=== PATIENT | male | born 1940 | race Hispanic/Latino ===

== ENCOUNTER 2020-03-18 10:13 | Inpatient (IN) | payer MEDICARE, OTHER ==
[~2020-03-18] VITALS: Ht 175.3 cm; Wt 79.4 kg
[2020-03-18] MEDS ORDERED: 0.9%NACL 1000ML 1,000 ML IV ONE (10:44)
[2020-03-18] MEDS ORDERED: ONDANSETRON 4MG INJ ONE (11:03)
[2020-03-18 11:09] LABS: BASOPHILS % (AUTO) 0.1 % (0.0-5.0); HEMATOCRIT 39.7 % (42-54); LYMPHOCYTES % (AUTO) 6.4 % (21.0-51.0); MEAN CORPUSCULAR HEMOGLOBIN 27.7 pg (27.0-33.0); MEAN CORPUSCULAR HGB CONC 33.8 g/dL (32.0-36.0); MEAN CORPUSCULAR VOLUME 82.2 fL (79-99); MONOCYTES % (AUTO) 8.2 % (3.0-13.0); NEUTROPHILS % (AUTO) 84.3 % (40.0-77.0); PLATELET COUNT (AUTO) 249 K/uL (130-400); RED BLOOD CELL COUNT(AUTO) 4.83 MIL/uL (4.50-6.20); WHITE BLOOD COUNT (AUTO) 11.4 K/uL (4.8-10.8)
[2020-03-18 11:49] LABS: ALBUMIN 2.6 g/dL (3.5-5.0); BILIRUBIN,TOTAL 0.6 mg/dL (0.2-1.0); CREATININE 2.7 mg/dL (0.5-1.5); MAGNESIUM 4.2 mg/dL (1.80-2.40); POTASSIUM 5.9 mmol/L (3.5-5.1); TOTAL PROTEIN, SERUM 6.6 g/dL (6.0-8.3)
[2020-03-18] MEDS ORDERED: INSULIN HUMULIN R 100 UNIT/ML 3ML ONE ×2 (12:30→21:36)
[2020-03-18 13:07] LABS: CRP QUANTITATIVE 19.3 mg/L (0.00-9.0); PHOSPHORUS 5.1 mg/dL (2.5-4.9)
[2020-03-18 13:18] LABS: BILIRUBIN,URINE Negative (NEGATIVE); COLOR,URINE Yellow (YELLOW); GLUCOSE, URINE (UA) >=1000 mg/dL (NEGATIVE); KETONES,URINE Negative (NEGATIVE); LEUKOCYTE ESTERASE ,URINE Negative (NEGATIVE); NITRATE,URINE Negative (NEGATIVE); OCCULT BLOOD,URINE Moderate (NEGATIVE); PROTEIN,URINE 300 mg/dL (NEGATIVE); UROBILINOGEN,URINE 0.2 mg/dL (0.2-1.0)
[2020-03-18 13:23] LABS: APPEARANCE,URINE CLEAR (CLEAR)
[2020-03-18 13:39] LABS: BACTERIA,URINE None Seen /HPF (None Seen); RBC,URINE 0-1 /HPF (0-1); WBC,URINE 0-1 /HPF (0-1)
[2020-03-18 15:19] LABS: CREATININE 2.7 mg/dL (0.5-1.5)
[2020-03-18] MEDS ORDERED: ACETAMINOPHEN 325 MG TAB PO PRN ×2 (16:45)
[2020-03-18] MEDS ORDERED: ONDANSETRON 4MG INJ IV PRN (16:45)
[2020-03-18] MEDS ORDERED: GUAIFENESIN-DM 200/20 MG 10 ML PO PRN (16:45)
[2020-03-18] MEDS ORDERED: ERGOCALCIFEROL (VITAMIN D2) 50,000 UNIT CAPSULE PO ONE (16:45)
[2020-03-18] MEDS ORDERED: KAYEXALATE 15GM/60ML PO SCH (17:00)
[2020-03-18] MEDS ORDERED: GLUCAGON 1MG KIT 1 MG ML IM PRN (17:00)
[2020-03-18] MEDS ORDERED: DEXTROSE 50%-WATER 50 ML DISP.SYRIN IV PRN (17:00)
[2020-03-18] MEDS ORDERED: 0.9%NACL 1000ML 1,000 ML IV SCH (20:45)
[2020-03-18] MEDS ORDERED: FAMOTIDINE 20MG VIAL IV SCH (21:00)
[2020-03-18] MEDS ORDERED: 1/2 NS 1000ML 1,000 ML IV SCH (21:00)
[2020-03-18] MEDS ORDERED: INSULIN HUMULIN R 100 UNIT/ML 3ML SQ SCH (21:00)
[2020-03-18] MEDS ORDERED: FAMOTIDINE 20MG VIAL IV ONE (21:08)
[2020-03-18] MEDS ORDERED: AZITHROMYCIN 500MG+NS 250ML 250 ML IV SCH (21:15)
[2020-03-18] MEDS ORDERED: KAYEXALATE 15GM/60ML ONE (21:18)
[2020-03-18] MEDS ORDERED: AZITHROMYCIN 500MG+NS 250ML 250 ML IV ONE (21:58)
[2020-03-18] MEDS ORDERED: DEXTROSE 5%-WATER 1,000 ML IV SCH (23:45)
[2020-03-19 07:11] LABS: MEAN CORPUSCULAR HEMOGLOBIN 27.5 pg (27.0-33.0); MEAN CORPUSCULAR HGB CONC 32.5 g/dL (32.0-36.0); MEAN CORPUSCULAR VOLUME 84.7 fL (79-99); RED BLOOD CELL COUNT(AUTO) 4.72 MIL/uL (4.50-6.20); RED CELL DISTRIBUTION WIDTH 14.5 % (11.0-15.5); WHITE BLOOD COUNT (AUTO) 13.4 K/uL (4.8-10.8)
[2020-03-19 07:24] LABS: HEMOGLOBIN A1C 9.5 % (4.0-6.0)
[2020-03-19] MEDS ORDERED: INSULIN R PO SS1/2 SQ SCH (07:30)
[2020-03-19] MEDS ORDERED: INSULIN HUMULIN R 100 UNIT/ML 3ML SQ SCH (08:00)
[2020-03-19] MEDS ORDERED: ASCORBIC ACID 500 MG TAB ONE (08:37)
[2020-03-19] MEDS ORDERED: ZINC SULFATE 220 CAPSULE ONE (08:38)
[2020-03-19 08:45] LABS: ALBUMIN 2.4 g/dL (3.5-5.0); BILIRUBIN,TOTAL 0.5 mg/dL (0.2-1.0); CREATININE 2.7 mg/dL (0.5-1.5); POTASSIUM 5.1 mmol/L (3.5-5.1); TOTAL PROTEIN, SERUM 6.3 g/dL (6.0-8.3)
[2020-03-19] MEDS ORDERED: HEPARIN 5,000 UNIT VIAL SQ SCH (09:00)
[2020-03-19] MEDS ORDERED: ZINC SULFATE 220 CAPSULE PO SCH (09:00)
[2020-03-19] MEDS ORDERED: ASCORBIC ACID 500 MG TAB PO SCH (09:00)
[2020-03-19] MEDS ORDERED: HEPARIN 5,000 UNIT VIAL ONE (09:38)
[2020-03-19] MEDS ORDERED: DEXTROSE 5 % AND 0.9 % NACL 1,000 ML IV ONE (09:39)
[2020-03-19] MEDS ORDERED: INSULIN GLARGINE 100 UNITS/ML 10 ML VIAL SQ SCH ×2 (21:00)
[2020-03-19] MEDS ORDERED: FAMOTIDINE 20MG VIAL IV ONE (21:50)
[2020-03-19] MEDS ORDERED: AZITHROMYCIN 500MG+NS 250ML 250 ML IV ONE (21:50)
[2020-03-20 06:20] LABS: BASOPHILS % (AUTO) 0.1 % (0.0-5.0); EOSINOPHILS % (AUTO) 0.8 % (0.0-8.0); HEMATOCRIT 41.1 % (42-54); LYMPHOCYTES % (AUTO) 14.2 % (21.0-51.0); MEAN CORPUSCULAR HEMOGLOBIN 27.2 pg (27.0-33.0); MEAN CORPUSCULAR HGB CONC 31.9 g/dL (32.0-36.0); MEAN CORPUSCULAR VOLUME 85.3 fL (79-99); MONOCYTES % (AUTO) 7.6 % (3.0-13.0); NEUTROPHILS % (AUTO) 76.7 % (40.0-77.0); PLATELET COUNT (AUTO) 212 K/uL (130-400); RED BLOOD CELL COUNT(AUTO) 4.82 MIL/uL (4.50-6.20); RED CELL DISTRIBUTION WIDTH 14.6 % (11.0-15.5); WHITE BLOOD COUNT (AUTO) 9.6 K/uL (4.8-10.8)
[2020-03-20] MEDS ORDERED: INSULIN HUMULIN R 100 UNIT/ML 3ML SQ SCH (07:30)
[2020-03-20] MEDS ORDERED: INSULIN HUMULIN R 100 UNIT/ML 3ML ONE ×2 (08:28→11:57)
[2020-03-20 08:44] LABS: ALBUMIN 2.4 g/dL (3.5-5.0); BILIRUBIN,TOTAL 0.5 mg/dL (0.2-1.0); CREATININE 2.3 mg/dL (0.5-1.5); POTASSIUM 4.8 mmol/L (3.5-5.1); TOTAL PROTEIN, SERUM 6.3 g/dL (6.0-8.3)
[2020-03-20] MEDS ORDERED: GLIP10TA9 PO (09:12)
[2020-03-20] MEDS ORDERED: CHOL100046 PO (09:12)
[2020-03-20] MEDS ORDERED: CYAN-52 PO (09:12)
[2020-03-20] MEDS ORDERED: DOCU-116 PO (09:12)
[2020-03-20] MEDS ORDERED: AMLO-258 PO (09:12)
[2020-03-20] MEDS ORDERED: CLOP75TA32 PO (09:12)
[2020-03-20] MEDS ORDERED: FOLI1TAB85 PO (09:12)
[2020-03-20] MEDS ORDERED: ENAL20TA18 PO (09:12)
[2020-03-20] MEDS ORDERED: LINA5TAB PO (09:12)
[2020-03-20] MEDS ORDERED: FISH1CAP63 PO (09:12)
[2020-03-20] MEDS ORDERED: ATOR10TA69 PO (09:12)
[2020-03-20] MEDS ORDERED: ASCO500C18 PO (09:12)
[2020-03-20] MEDS ORDERED: ASCORBIC ACID 500 MG TAB ONE (09:33)
[2020-03-20] MEDS ORDERED: ZINC SULFATE 220 CAPSULE ONE (09:33)
[2020-03-20] MEDS ORDERED: HEPARIN 5,000 UNIT VIAL ONE (09:33)
[2020-03-20] MEDS ORDERED: INSULIN GLARGINE 100 UNITS/ML 10 ML VIAL SQ SCH (21:00)
[2020-03-21] MEDS ORDERED: INSULIN HUMULIN R 100 UNIT/ML 3ML SQ SCH (07:30)
== END 2020-03-20 13:31 | disposition left against medical advice (07) | DRG 177 ==
LOC: EDH 10:13 → EDHIP 16:38
PROVIDERS: ADMIT Internal Medicine; ATTEND Internal Medicine
DX: U07.1 COVID-19 (principal); J18.9 Pneumonia, unspecified organism; E87.0 Hyperosmolality and hypernatremia; I69.351 Hemiplegia and hemiparesis following cerebral infarction affecting right dominant side; N17.9 Acute kidney failure, unspecified; E11.22 Type 2 diabetes mellitus with diabetic chronic kidney disease; E11.319 Type 2 diabetes mellitus with unspecified diabetic retinopathy without macular edema; E11.65 Type 2 diabetes mellitus with hyperglycemia; E78.5 Hyperlipidemia, unspecified; E86.0 Dehydration; E87.5 Hyperkalemia; E87.8 Other disorders of electrolyte and fluid balance, not elsewhere classified; I12.9 Hypertensive chronic kidney disease with stage 1 through stage 4 chronic kidney disease, or unspecified chronic kidney disease; N18.30 Chronic kidney disease, stage 3 unspecified; E11.42 Type 2 diabetes mellitus with diabetic polyneuropathy; I49.3 Ventricular premature depolarization; T38.0X5A Adverse effect of glucocorticoids and synthetic analogues, initial encounter; Z53.29 Procedure and treatment not carried out because of patient's decision for other reasons; Z79.4 Long term (current) use of insulin; I69.322 Dysarthria following cerebral infarction; I69.328 Other speech and language deficits following cerebral infarction; Y92.89 Other specified places as the place of occurrence of the external cause; Z79.899 Other long term (current) drug therapy; Z87.891 Personal history of nicotine dependence
CPT/HCPCS: 36415; 71045; 80048; 80053; 81001; 82010; 82728; 82948; 83036; 83735; 83880; 84100; 84145; 84484; 85025; 85027; 85378; 86140; 87040; 93005; G0378; J0456; J1644; J1815; J2405; J3490; J7030; J7042